=== PATIENT | male | born 1980 | race American Indian/Alaskan Native ===

== ENCOUNTER 2020-02-13 23:07 | Emergency (ER) | payer OTHER | END 2020-02-14 04:30 | disposition left against medical advice (07) | LOC: ED 23:07 | DX: M54.2 Cervicalgia (principal); Z53.21 Procedure and treatment not carried out due to patient leaving prior to being seen by health care provider ==

== ENCOUNTER 2020-02-14 16:53 | Emergency (ER) | payer OTHER ==
[2020-02-14 17:30] VITALS: BP 105/66
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
== END 2020-02-14 21:00 | disposition home or self-care (01) ==
LOC: ED 16:53
DX: S16.1XXA Strain of muscle, fascia and tendon at neck level, initial encounter (principal); S43.492A Other sprain of left shoulder joint, initial encounter; F17.200 Nicotine dependence, unspecified, uncomplicated; V89.2XXA Person injured in unspecified motor-vehicle accident, traffic, initial encounter; Y93.89 Activity, other specified; Y92.410 Unspecified street and highway as the place of occurrence of the external cause; Y99.8 Other external cause status
CPT/HCPCS: 99282